=== PATIENT | male | born 1935 | race Caucasian/White ===

== ENCOUNTER → 2019-07-10 | Outpatient (CLI) | payer OTHER ==
--- NOTE | 2019-07-10 15:22 | Diagnostic Imaging Report ---
PROCEDURE: CT abdomen and pelvis without contrast. TECHNIQUE: Multiple contiguous axial images were obtained through the abdomen and pelvis without the use of intravenous contrast. Auto Exposure Controls were utilized during the CT exam to meet ALARA standards for radiation dose reduction. INDICATION: Checking for IVC filter. FINDINGS: There are no prior studies available for comparison. There is an IVC filter in place. The filter lies at approximately the level of L3. On the coronal images, the tip of the filter extends along the right lateral wall of the inferior vena cava. The filter seems to be in good position on the axial images. One of the prongs of the filter appears to be in close proximity to a small vessel (image 38 of 92). The mesenteric fat around this vessel however is undisturbed and it is unlikely that there is any injury to the vessel. The aorta is unremarkable. The liver, spleen, pancreas, adrenals, and gallbladder show no sign of an acute abnormality; however there is a small linear 5.8 mm calculus within the gallbladder. There are bilateral renal cysts. The largest cyst is along the inferior pole of the left kidney and measures 5.1 cm in maximum diameter. These cysts have a generally benign appearance. 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 The urinary bladder and prostate gland are grossly unremarkable. There may be a few diverticula in the sigmoid and descending colon, but there is no evidence for acute diverticulitis. The appendix is visualized and is not abnormally thickened. The bone windows show no sign of a fracture or of a destructive lesion. The lung bases are clear. IMPRESSION: 1. There is a vena cava filter in place and the filter seems to be in good position. One of the prongs of the filter is in close proximity to a vessel near the vena cava, but there is no indirect evidence that the vessel has been injured. 2. There is no acute abnormality of the abdomen or pelvis noted. 3. There is cholelithiasis without evidence for acute cholecystitis. If further evaluation of the gallbladder is desired, then ultrasound will be recommended. 4. There are bilateral renal cysts. Dictated by: Dictated on workstation # [id number]
== END ==
LOC: RAD FS 13:34
DX: Z45.89 Encounter for adjustment and management of other implanted devices (principal); K80.20 Calculus of gallbladder without cholecystitis without obstruction; N28.1 Cyst of kidney, acquired; Z95.828 Presence of other vascular implants and grafts
CPT/HCPCS: 74176